=== PATIENT | female | born 1995 | race Caucasian/White ===

== ENCOUNTER 2020-06-21 08:07 | Outpatient (CLI) | payer OTHER ==
--- NOTE | 2020-06-21 09:01 | ULT ---
Obstetrical ultrasound: 06/21/2020 COMPARISON: None HISTORY: 24-year-old female, assess anatomy and cervix TECHNIQUE: Multiplanar grayscale sonographic imaging of the gravid uterus obtained. FINDINGS: Cervical length is approximately 3.1 cm. The placenta is located posteriorly and demonstrates no evidence for previa or abruption. presentation is breech. Maternal adnexa are not well visualized on this exam. The nose and lips, the intracranial contents, four-chamber heart view, three-vessel cord, stomach, umbilical cord insertion site, urinary bladder, and kidneys appear unremarkable. spine appears within normal limits. Amniotic fluid index is 14.9 cm. heart rate is 142 bpm. biometry: Biparietal diameter 5.3 cm 22 weeks 1 day Head circumference 19.5 cm 21 weeks 6 days Abdominal circumference 17 cm 22 weeks 0 days Femur length 3.8 cm 22 weeks 1 day Average age based on ultrasound is 22 weeks 1 day. Estimated weight is 468 g +/- 68 g. Estimated date of delivery is 10/24/2020. IMPRESSION: Intrauterine gestation demonstrating no abnormalities.
== END 2020-06-21 08:08 | disposition home or self-care (01) ==
LOC: BICULT 08:07
PROVIDERS: ATTEND Family Medicine
DX: Z34.02 Encounter for supervision of normal first pregnancy, second trimester (principal); Z3A.20 20 weeks gestation of pregnancy
CPT/HCPCS: 76805